=== PATIENT | male | born 1950 | race African-American/Black ===

== ENCOUNTER 2016-09-30 08:07 | Emergency (ER) ==
[2016-09-30] MEDS ORDERED: ASPIRIN PO STA (08:17)
[2016-09-30] MEDS ORDERED: NITROGLYCERIN SL PRN (08:17)
[2016-09-30 08:50] LABS: MANUAL DIFF NEEDED? NO
[2016-09-30 09:02] LABS: BASO% 0.2 % (0.0-0.8); EOS# 0.09 X1000 (0.0-0.7); EOS% 1.5 % (0.0-10.0); HEMATOCRIT 38.8 % (42.0-52.0); HEMOGLOBIN 12.8 g/dL (14.0-18.0); LYMPH# 2.35 X1000 (1.2-3.4); LYMPH% 39.3 % (20.5-51.1); MCV 84.9 FL (81-99); MONO# 0.77 X1000 (0.11-0.59); MONO% 12.9 % (1.7-9.3); MPV 12.4 FL (7.4-10.4); NEUT% 46.1 % (42.2-75.2); PLT 175 X1000 (130-400); RBC 4.57 XMIL (4.7-6.1)
[2016-09-30 09:14] LABS: INR 1.03; PROTIME 10.9 Seconds (9.2-11.7); PTT 23.8 Seconds (22.0-36.0)
[2016-09-30 09:15] LABS: AGAP 15; ALBUMIN 4.2 g/dL (3.5-5.0); ALKALINE PHOSPHATASE 75 U/L (32-122); BUN 17 mg/dL (8-22); CALCIUM 9.6 mg/dL (8.8-10.2); CHLORIDE 96 mmol/L (98-107); COSMO 285; GOT 28 U/L (10-34); GPT 34 U/L (10-44); MAGNESIUM 1.9 mg/dL (1.5-2.7); POTASSIUM 3.8 mmol/L (3.5-5.1); SODIUM 138 mmol/L (136-145); TCO2 27 mmol/L (25-35); TOTAL BILIRUBIN 0.32 mg/dL (0.20-1.00); TOTAL PROTEIN 7.4 g/dL (6.3-8.3)
[2016-09-30 09:30] LABS: CK PROFILE 947 U/L (24-204)
[2016-09-30 09:52] LABS: CK INDEX 0.6 (0.0-2.5); CK-MB 6.05 ng/mL (0.0-5.0)
--- NOTE | 2016-09-30 10:01 | PROVIDER DOCUMENTATION ---
HPI-Chest Pain - General Source: patient - History of Present Illness-CP Location: reports: central, shoulder Chest Pain Radiation: reports: arms (left) Quality of Pain: reports: pressure Severity in ED: mild Onset/Duration: 24 hours ago, 1 week ago Timing: still present Context/Activities at Onset: reports: none Modifying Factors: improves with: movement Associated Symptoms: reports: nausea Nitro Today/Relief: no nitro taken today Aspirin Treatment Today: no aspirin today Prior Chest Pain/Cardiac Workup: reports: no prior chest pain Similar Symptoms Previously?: No Recently Seen Here or By Another Healthcare Provider: No <Bere Snell - Last Filed: 09/30/16 15:18> <Skip Almanzar - Last Filed: 09/30/16 15:44> - General Chief Complaint: Chest Pain Stated Complaint: CP Time Seen by Provider: 09/30/16 09:02 Allergies/Adverse Reactions: Patient Allergies Allergy/AdvReac Type Severity Reaction Status Date / Time clonidine Allergy SHORTNESS Verified 09/30/16 08:33 OF BREATH Home Medications: Home Medication List Medication Instructions Recorded Confirmed Last Taken Type Albuterol Sulfate 2.5 mg IH Q4H PRN 05/26/13 09/30/16 06/13/13 08:00 History Allopurinol [Zyloprim] 300 mg PO DAILY 05/26/13 08/08/15 09/30/16 05:00 History Gabapentin [Neurontin] 600 mg PO TID 05/26/13 09/30/16 09/30/16 05:00 History Amlodipine [Norvasc] 10 mg PO DAILY #30 tablet 05/29/13 09/30/16 09/30/16 05:00 Rx Glimepiride [Amaryl] 2 mg PO BID AC #0 tablet 05/29/13 09/30/16 09/30/16 05:00 Rx Insulin Glargine [Lantus] 35 unit SUBQ QAM #0 insuln.pen 05/29/13 09/30/1609/30 05:00 Rx Metformin [Glucophage] 1,000 mg PO BID #0 tablet 05/29/13 09/30/16 09/30/16 05: 00 Rx Pravastatin Sodium [Pravachol] 80 mg PO DAILY #30 tablet 05/29/13 09/30/1609/29 19:00 Rx Aspirin 81 mg PO DAILY 06/16/13 09/30/16 06/16/13 08:00 History Hydrochlorothiazide 12.5 mg PO DAILY 06/16/13 09/30/16 09/30/16 05:00 History Losartan Potassium [Cozaar] 100 mg PO DAILY 06/16/13 09/30/16 09/30/16 05:00 History - History of Present Illness-CP Nature of Presenting Problem: Pt is a 66 yom who came to the ED with a cc of chest pain. Pt reports he has had chest pain that started from the back of his right shoulder one week ago. Pt reports the pain radiated to his left arm yesterday, he reports his left arm feels heavy. Pt reports he is supposed to take an asprin a day but doesn't. ( Bere Snell) Says that he has had chest discomfort for the past several days. Says that the pain is not associated with nausea or vomiting. has not had any hemoptysis. says that he has had a stress test years ago and it was unremarkable. No calf tenderness or shortness of breath. (Skip Almanzar) Review of Systems - Adult - REVIEW OF SYSTEMS - ADULT Constitutional: denies: chills, fever Eyes: reports: no symptoms reported Ears, Nose, Mouth & Throat: denies: epistaxis, loose teeth Cardiovascular: reports: chest pain. denies: heart murmur, orthopnea Respiratory: denies: pleurisy, wheezing Gastrointestinal: reports: no symptoms reported Genitourinary: reports: no symptoms reported Musculoskeletal: reports: no symptoms reported Integumentary: reports: no symptoms reported Neurological: reports: no symptoms reported Psychiatric: reports: no symptoms reported Endocrine: reports: no symptoms reported Hematologic/Lymphatic: reports: no symptoms reported Allergic/Immunologic: reports: no symptoms reported All Other Systems: Reviewed and Negative <Bere Snell - Last Filed: 09/30/16 15:18> Past History - Adult - PAST MEDICAL HISTORY-ADULT Review of Records: reports: Old Records Reviewed, Nursing Assessment Review Major Childhood Illnesses: reports: denies history Cardiovascular: reports: denies history Respiratory: reports: asthma, COPD Gastrointestinal: reports: denies history Obstetrical/Gynecological: reports: denies history Genitourinary: reports: denies history Musculoskeletal: reports: denies history Neurological: reports: denies history Endocrine/Immune: reports: Diabetes Other Conditions: reports: denies history - IMMUNIZATION STATUS Childhood Immunizations: See Nurse Assessment Flu Vaccine: See Nurse Assessment - FAMILY HISTORY Family History: reviewed, not pertinent <Bere Snell - Last Filed: 09/30/16 15:18> Physical Exam-General - PHYSICAL EXAM-ADULT Initial Vital Signs Reviewed: Yes - CONSTITUTIONAL General Appearance: alert, no apparent distress - EYES Eyes: PERRL/EOMI, pink conjunctivae - HEAD, EARS, NOSE, MOUTH & THROAT HENMT: normocephalic/atraumatic, moist mucous membranes, normal ENT inspection, TMs normal, pharynx normal - NECK Neck: non-tender, supple - RESPIRATORY Respiratory: chest non-tender, lungs clear, normal breath sounds - CARDIOVASCULAR Cardiovascular: regular rate, rhythm - GASTROINTESTINAL (ABDOMEN) Abdominal Exam: normal bowel sounds, non tender, soft - LYMPHATIC Lymphatic: no adenopathy - MUSCULOSKELETAL Back Exam: normal inspection Extremity: non-tender - SKIN Integumentary: normal color, normal turgor, warm/dry - NEUROLOGIC Neurologic: grossly normal - PSYCHIATRIC Psych/Mental Status: normal mood/affect, normal thought content, normal thought process, oriented x 3 <Bere Snell - Last Filed: 09/30/16 15:18> Progress - EKG 1 Time of EKG reading by physician:: 08:15 EKG Read and Signed by:: Skip Almanzar EKG Interpretation (*Must complete 3 of following elements*): Abnormal Rate: 62 (nonspecific T wave abnormality) Rhythm: sinus rhythm with 1st degree AV block 2 Time of EKG reading by physician:: 12:29 EKG Read and Signed by:: Skip Almanzar EKG Interpretation (*Must complete 3 of following elements*): Abnormal Rate: 61 (nonspecific T wave abnormality ) Rhythm: sinus rhythm with 1st degree AV block - XRAY 1 XRAY Study: Chest (no acute disease) - ULTRASOUND (By Radiology) 1 US Study: Aorta (limited due to bowel gas but normal proximal and mid aorta) <Bere Snell - Last Filed: 09/30/16 15:18> <Skip Almanzar - Last Filed: 09/30/16 15:44> - PLAN OF CARE/RESULTS Progress/Plan/Lab Results: Vital Signs - 24 hr 09/30/16 09/30/16 09/30/16 08:14 08:43 09:49 Temperature 98.3 F Pulse Rate 61 70 62 Respiratory 20 16 17 Rate Blood Pressure 145/81 138/78 135/76 O2 Sat by Pulse 99 95 95 Oximetry Orders Category Date Time Status Cardiac Monitoring DIRECTED Care 09/30/16 08:17 Active Saline Loc NOW Care 09/30/16 08:17 Active CHEST-2 VIEWS [RAD] Stat Exams 09/30/16 08:17 Taken CBC WITH ELECTRONIC DIFF [HEME] Stat Lab 09/30/16 08:40 Completed CK PROFILE [SP CHEM] Stat Lab 09/30/16 08:40 Completed COMPREHENSIVE METABOLIC PANEL [CHEM] Stat Lab 09/30/16 08:40 Completed D-DIMER [CHEM] Stat Lab 09/30/16 08:40 Completed MAGNESIUM [CHEM] Stat Lab 09/30/16 08:40 Completed PRO B-NATRIURETIC PEPTIDE Stat Lab 09/30/16 08:40 Completed PROTIME WITH INR [COAG] Stat Lab 09/30/16 08:40 Completed PTT [COAG] Stat Lab 09/30/16 08:40 Completed TROPONIN T Stat Lab 09/30/16 08:40 Completed Aspirin Med 09/30/16 08:17 Discontinued 325 mg PO STAT STA Nitroglycerin Sl [Nitroglycerin] Med 09/30/16 08:17 Active 0.4 mg SL Q5M PRN PRN EKG [EKG] Stat Ther 09/30/16 08:14 Ordered Laboratory Tests 09/30/16 09/30/16 09/30/16 08:40 08:40 08:40 WBC 5.98 RBC 4.57 L Hgb 12.8 L Hct 38.8 L MCV 84.9 MCH 28.0 MCHC 33.0 RDW Std Deviation 15.3 H Plt Count 175 MPV 12.4 H Immature Gran % (Auto) 0.0 Neut % (Auto) 46.1 Lymph % (Auto) 39.3 Sutton % (Auto) 12.9 H Eos % (Auto) 1.5 Baso % (Auto) 0.2 Immature Gran # (Auto) 0.00 Neut # (Auto) 2.76 Lymph # (Auto) 2.35 Sutton # (Auto) 0.77 H Eos # (Auto) 0.09 Baso # (Auto) 0.01 PT INR PTT (Actin FS) D-Dimer 0.48 Sodium 138 Potassium 3.8 Chloride 96 L Carbon Dioxide 27 Anion Gap 15 BUN 17 Creatinine 1.3 H Estimated GFR/1.73 m2 > 60 BUN/Creatinine Ratio 13 Glucose 233 H Calculated Osmolality 285 Calcium 9.6 Magnesium 1.9 Total Bilirubin 0.32 AST 28 ALT 34 Alkaline Phosphatase 75 Creatine Kinase 947 H Creatine Kinase Index 0.6 CK-MB (CK-2) 6.05 H Troponin T [id number]-[id number] Pept Total Protein 7.4 Albumin 4.2 Globulin 3.2 Albumin/Globulin Ratio 1.3 09/30/16 09/30/16 09/30/16 08:40 08:40 08:40 WBC RBC Hgb Hct MCV MCH MCHC RDW Std Deviation Plt Count MPV Immature Gran % (Auto) Neut % (Auto) Lymph % (Auto) Sutton % (Auto) Eos % (Auto) Baso % (Auto) Immature Gran # (Auto) Neut # (Auto) Lymph # (Auto) Sutton # (Auto) Eos # (Auto) Baso # (Auto) PT 10.9 INR 1.03 PTT (Actin FS) 23.8 D-Dimer Sodium Potassium Chloride Carbon Dioxide Anion Gap BUN Creatinine Estimated GFR/1.73 m2 BUN/Creatinine Ratio Glucose Calculated Osmolality Calcium Magnesium Total Bilirubin AST ALT Alkaline Phosphatase Creatine Kinase Creatine Kinase Index CK-MB (CK-2) Troponin T < 0.010 Yoz-Q-Ipsoexnbxxp Pept 27 Total Protein Albumin Globulin Albumin/Globulin Ratio (Bere Snell) Departure <Bere Snell - Last Filed: 09/30/16 15:18> - Departure Time of Disposition Order: 15:38 (waiting on labs to result) Certified Medical Emergency: Emergent <Skip Almanzar - Last Filed: 09/30/16 15:44> - Departure DIAGNOSIS: Chest pain in adult, Elevated creatine kinase Disposition: HOME 01 Condition: Stable Additional Instructions: All questions answered with regard to treatment and made aware of US results. Patient chest still chest pain free. ED Follow Up Instructions: You have been treated by a care provider in the Emergency Department. These instructions are being provided to you so you can have an understanding of how to care for yourself upon discharge. Upon discharge from the Emergency Department, you are responsible for making arrangements for follow-up care by a physician of your choice. Take all prescribed medications as directed. Return to the Emergency Department immediately for any new or worsening symptoms. You may call the Physician Referral phone number at [phone] to obtain a list of Physicians who are taking new patients. Attestation - Scribe Verification/Attestation Scribe:: Bere Snell Acting as Scribe for:: Skip Almanzar Scribe documention review:: This chart was documented by a scribe and accurately reflects the service the provider performed and the decisions made by the provider. <Bere Snell - Last Filed: 09/30/16 15:18> Physician Attestation - Physician Attestation I, the provider, attest to the following statement:: Bere Snell Physician documentation Attestation:: This documentation recorded by the scribe accurately reflects the service I personally performed and the decisions made by me. <Skip Almanzar - Last Filed: 09/30/16 15:44>
--- NOTE | 2016-09-30 11:13 | Diag Imaging Result Document ---
PROCEDURE NAME: CHEST-2 VIEWS - 09/30/2016 FRONTAL AND LATERAL CHEST, TWO VIEWS: COMPARISON: Compared to 05/26/2013. FINDINGS: The lungs are well expanded. The heart is not enlarged. The vessels are not distended. No pneumonia. No pleural effusions. No free air beneath the diaphragm. IMPRESSION: No acute abnormality.
[2016-09-30 13:47] LABS: URINE MICRO REVIEW NEEDED? NO; URINE SOURCE VOIDED
[2016-09-30 14:13] LABS: UR AMPHETAMINES QUAL NONE DETECTED (NONE DETECT); UR BARBITUATES QUAL NONE DETECTED (NONE DETECT); UR BENZODIAZEPIN QUAL NONE DETECTED (NONE DETECT); UR CANNABINOIDS QUAL NONE DETECTED (NONE DETECT); UR COCAINE QUAL NONE DETECTED (NONE DETECT); UR METHADONE QUAL NONE DETECTED (NONE DETECT); UR OPIATES QUAL NONE DETECTED (NONE DETECT); UR OXYCODONE QUAL NONE DETECTED (NONE DETECT); UR PCP QUAL NONE DETECTED (NONE DETECT)
[2016-09-30 14:21] LABS: BILIRUBIN URINE NEGATIVE (NEGATIVE); BLOOD URINE NEGATIVE (NEGATIVE); COLOR YELLOW; GLUCOSE URINE 1000 mg/dL (NEGATIVE); LEUKOCYTES URINE NEGATIVE (NEGATIVE); NITRITE URINE NEGATIVE (NEGATIVE); PH URINE 5.5; PROTEIN URINE NEGATIVE (NEGATIVE); TURBIDITY URINE CLEAR (CLEAR); UROBILINOGEN URINE 2 mg/dL (NORMAL)
[2016-09-30 14:23] LABS: UR EPITHELIAL CELLS <10 /HPF (<10); URINE BACTERIA 1+ /HPF; URINE RBC <10 /HPF (<10); URINE WBC <10 /HPF (<10)
--- NOTE | 2016-09-30 15:03 | Diag Imaging Result Document ---
PROCEDURE NAME: US AORTA (LIMITED) - 09/30/2016 ABDOMINAL ULTRASOUND: FINDINGS: Exam is limited due to bowel gas and the patient's body habitus. No dilatation to the proximal or mid aorta. Mid aorta has an maximum diameter of 2.2 cm. The distal aorta is obscured. The iliac arteries are also obscured. IMPRESSION: Limited exam, but no abdominal aortic aneurysm identified.
[2016-09-30 16:03] LABS: CK INDEX 0.6 (0.0-2.5); CK-MB 5.94 ng/mL (0.0-5.0)
[2016-09-30 16:33] VITALS: BP 130/65
--- NOTE | 2016-10-01 05:50 | EKG Report ---
Test Performed on : 09/30/2016 12:29:30 PM Test Reason : cp Blood Pressure : / mmHG Vent. Rate : 061 BPM Atrial Rate : 061 BPM P-R Int : 226 ms QRS Dur : 104 ms QT Int : 424 ms P-R-T Axes : 027 004 049 degrees QTc Int : 426 ms Sinus rhythm. with 1st degree AV block. Nonspecific T wave abnormality Abnormal ECG When compared with ECG of 30-SEP-2016 08:15, (Unconfirmed) Nonspecific T wave abnormality now evident in Inferior leads Unconfirmed Result
--- NOTE | 2016-10-01 05:54 | EKG Report ---
Test Performed on : 09/30/2016 08:15:49 AM Test Reason : CP Blood Pressure : / mmHG Vent. Rate : 062 BPM Atrial Rate : 062 BPM P-R Int : 214 ms QRS Dur : 106 ms QT Int : 410 ms P-R-T Axes : 040 016 056 degrees QTc Int : 416 ms Sinus rhythm. with 1st degree AV block. Nonspecific T wave abnormality Abnormal ECG When compared with ECG of 27-MAY-2013 06:11, DC interval has increased QT has shortened Unconfirmed Result
== END 2016-09-30 16:35 | disposition home or self-care (01) ==
LOC: ED 08:07
DX: R07.9 Chest pain, unspecified (principal); R74.8 Abnormal levels of other serum enzymes; J44.9 Chronic obstructive pulmonary disease, unspecified; E11.9 Type 2 diabetes mellitus without complications; R94.31 Abnormal electrocardiogram [ECG] [EKG]; Z79.899 Other long term (current) drug therapy; Z79.82 Long term (current) use of aspirin; Z79.4 Long term (current) use of insulin
CPT/HCPCS: 71020; 76775; 80053; 81001; 82550; 82553; 82948; 83735; 83880; 84484; 85025; 85379; 85610; 85730; 93005; G0480; 80324; 80345; 80346; 80349; 80353; 80358; 80361; 80365; 83992